=== PATIENT | male | born 1985 | race Caucasian/White ===

== ENCOUNTER 2020-05-21 10:53 | Emergency (ER) | payer MEDICAID ==
[~2020-05-21] VITALS: Ht 190.5 cm; Wt 79.5 kg
[2020-05-21 11:06] VITALS: BP 127/56; Ht 190.5 cm; Wt 79.5 kg
== END 2020-05-21 11:57 | disposition home or self-care (01) ==
LOC: D.ER 10:53
DX: R21 Rash and other nonspecific skin eruption (principal); F45.8 Other somatoform disorders